=== PATIENT | female | born 1990 | race American Indian/Alaskan Native ===

== ENCOUNTER 2020-09-29 12:37 | Emergency (ER) | payer SELFPAY ==
[2020-09-29 12:43] VITALS: BP 132/74
--- NOTE | 2020-09-29 16:02 | Emergency Department Report ---
ED Female HPI - General Chief complaint: Urogenital-Female Stated complaint: VAGINAL/ANAL CUT WITH DISCHARGE Time Seen by Provider: 09/29/20 12:40 Source: patient Mode of arrival: Ambulatory Limitations: No Limitations - History of Present Illness MD Complaint: vaginal discharge, pelvic pain, other (Noticed some vaginal cuts to the perineal region of an unknown etiology reports no manual manipulation, reports no known trauma.) Quality: burning Consistency: constant Improves with: none Worsens with: none Are you Now?: No Associated Symptoms: denies: loss of appetite, dysuria, hematuria, shortness of breath, syncope, weakness - Related Data Previous Rx's Medication Instructions Recorded Last Taken Type Acyclovir [Zovirax Tab] 400 mg PO Q8H #15 tab 09/29/20 Unknown Rx Cefixime [Suprax] 800 mg PO ONCE #2 capsule 09/29/20 Unknown Rx DOXYCYCLINE Hyclate [Vibramycin 100 mg PO BID #28 capsule 09/29/20 Unknown Rx CAP] metroNIDAZOLE [Flagyl] 500 mg PO Q12HR #28 tab 09/29/20 Unknown Rx Allergies Allergy/AdvReac Type Severity Reaction Status Date / Time No Known Allergies Allergy Unverified 09/29/20 12:40 ED Review of Systems ROS: Stated complaint: VAGINAL/ANAL CUT WITH DISCHARGE Other details as noted in HPI Comment: All other systems reviewed and negative ED Past Medical Hx - Past Medical History Previous Medical History?: No - Surgical History Past Surgical History?: No - Social History Smoking Status: Never Smoker Substance Use Type: None - Medications Home Medications: Home Medications Medication Instructions Recorded Confirmed Last Taken Type Acyclovir [Zovirax Tab] 400 mg PO Q8H #15 tab 09/29/20 Unknown Rx Cefixime [Suprax] 800 mg PO ONCE #2 capsule 09/29/20 Unknown Rx DOXYCYCLINE Hyclate [Vibramycin 100 mg PO BID #28 capsule 09/29/20 Unknown Rx CAP] metroNIDAZOLE [Flagyl] 500 mg PO Q12HR #28 tab 09/29/20 Unknown Rx ED Physical Exam - General Limitations: No Limitations General appearance: alert, in no apparent distress - Head Head exam: Present: atraumatic, normocephalic - Eye Eye exam: Present: normal appearance, PERRL, EOMI - ENT ENT exam: Present: mucous membranes moist - Neck Neck exam: Present: normal inspection - Respiratory Respiratory exam: Present: normal lung sounds bilaterally. Absent: respiratory distress - Cardiovascular Cardiovascular Exam: Present: regular rate, normal rhythm. Absent: systolic murmur, diastolic murmur, rubs, gallop - GI/Abdominal GI/Abdominal exam: Present: soft, normal bowel sounds - External exam: Present: normal external exam Speculum exam: Present: vaginal discharge, cervical discharge Bi-manual exam: Absent: adnexal tenderness, adnexal mass - Expanded Exam Expanded image: 1 - For ulcerative lesions to this area tenderness with palpation to those areas - Extremities Exam Extremities exam: Present: normal inspection, normal capillary refill. Absent: tenderness, joint swelling, calf tenderness - Back Exam Back exam: Present: normal inspection. Absent: CVA tenderness (R), CVA tenderness (L), muscle spasm - Neurological Exam Neurological exam: Present: alert, oriented X3, CN II-XII intact - Psychiatric Psychiatric exam: Present: normal affect, normal mood - Skin Skin exam: Present: warm, dry, intact, normal color. Absent: rash ED Course Vital Signs 09/29/20 12:41 Temperature 98.5 F Pulse Rate 91 H Respiratory 20 Rate Blood Pressure 132/74 O2 Sat by Pulse 99 Oximetry ED Medical Decision Making - Medical Decision Making 29-year-old [place] female [facility] emerge department complaining of painful cut/lesions to the perineal region. On examination these were found to be of an ulcerative nature suggestive of a herpetic lesion but could also possibly have a bacterial excoriation component. Pelvic examination did have vaginal discharge with wet prep did show a moderate amount of polymorphonuclear cells. There was no significant pelvic tenderness on examination although she did report some cramping discomfort and abnormal menses. States that this present time she is not sexually active. These polymorphonuclear cells do give rise to a likely upper genital tract infection for this reason we will still prophylactically treat with a cocktail Suprax, doxycycline, Flagyl Critical care attestation.: If time is entered above; I have spent that time in minutes in the direct care of this critically ill patient, excluding procedure time. ED Disposition Clinical Impression: Vaginitis, Ulcerative vaginitis Disposition: TO HOME OR SELFCARE Is pt being admited?: No Does the pt Need Aspirin: No Condition: Stable Instructions: Bacterial Vaginosis, Vaginitis Referrals: PRIMARY CARE, [Primary Care Provider] - 3-5 Days [facility] [Provider Group] - 3-5 Days [facility] [Provider Group] - 3-5 Days
== END 2020-09-29 16:00 | disposition home or self-care (01) ==
LOC: ED 12:37
DX: N76.0 Acute vaginitis (principal); Z79.899 Other long term (current) drug therapy
CPT/HCPCS: 87210; 87591; 99283